=== PATIENT | female | born 1995 | race Caucasian/White ===

== ENCOUNTER 2020-12-02 09:13 | Emergency (ER) | payer OTHER ==
[~2020-12-02] VITALS: Ht 162.6 cm; Wt 90.7 kg
[2020-12-02] MEDS ORDERED: ORTHO TRI-CYCL1 EACH PO (09:24)
== END 2020-12-02 14:49 | disposition home or self-care (01) ==
LOC: ER 09:13
DX: R10.2 Pelvic and perineal pain (principal)

== ENCOUNTER 2023-07-15 01:42 | Emergency (ER) | payer OTHER ==
[~2023-07-15] VITALS: Ht 162.6 cm; Wt 88.9 kg
[~2023-07-15 01:42] MED LIST: ORTHO TRI-CYCL1 EACH PO
[2023-07-15] MEDS ORDERED: PRENA1 TRUE CO1 EACH (01:57)
== END 2023-07-15 04:38 | disposition home or self-care (01) ==
LOC: ER 01:42
DX: J06.9 Acute upper respiratory infection, unspecified (principal); R05.9 Cough, unspecified

== ENCOUNTER 2023-08-23 09:36 | Outpatient (CLI) | payer OTHER ==
[~2023-08-23 09:36] MED LIST changes: +PRENA1 TRUE CO1 EACH
== END 2023-08-23 09:39 | disposition home or self-care (01) ==
LOC: PRENATAL 09:36
PROVIDERS: ATTEND Obstetrics & Gynecology Maternal & Fetal Medicine
DX: O35.3XX0 Maternal care for (suspected) damage to fetus from viral disease in mother, not applicable or unspecified (principal); O44.00 Complete placenta previa NOS or without hemorrhage, unspecified trimester; Z3A.20 20 weeks gestation of pregnancy

== ENCOUNTER 2023-10-17 14:55 | Outpatient (CLI) | payer OTHER | END 2023-10-17 14:56 | disposition home or self-care (01) | LOC: PRENATAL 14:55 | PROVIDERS: ATTEND Obstetrics & Gynecology Maternal & Fetal Medicine | DX: O26.849 Uterine size-date discrepancy, unspecified trimester (principal); O44.00 Complete placenta previa NOS or without hemorrhage, unspecified trimester; Z3A.28 28 weeks gestation of pregnancy ==